=== PATIENT | female | born 1955 | race Caucasian/White ===

== ENCOUNTER 2020-02-24 17:02 | Emergency (ER) | payer MEDICAID, MEDICARE ==
[~2020-02-24] VITALS: Ht 165.1 cm; Wt 51.4 kg
[2020-02-24] MEDS ORDERED: ondansetron 4mg rapidly disintigrating tab PO ONE (18:05)
[2020-02-24] MEDS ORDERED: meclizine 12.5mg tablet PO ONE (18:05)
[2020-02-24] MEDS ORDERED: MECL-184 PO (19:35)
[2020-02-24 19:51] VITALS: BP 141/75
--- NOTE | 2020-02-24 19:57 | NUR ---
[facility] CALLED FOR SELF PAY [facility].
== END 2020-02-24 19:53 | disposition home or self-care (01) ==
LOC: ER 17:03
DX: R42 Dizziness and giddiness (principal); R11.2 Nausea with vomiting, unspecified; Z79.899 Other long term (current) drug therapy
CPT/HCPCS: 99283; J8597